=== PATIENT | female | born 2000 | race Caucasian/White ===

== ENCOUNTER 2022-08-15 08:17 | Inpatient (IN) | payer OTHER ==
[~2022-08-15 08:17] MED LIST: CLINDAMYCIN 600 MG PREMIX BAG IVPB ONE
[2022-08-15 08:23] VITALS: BMI 19.1
[2022-08-15] MEDS ORDERED: LACTATED RINGERS SOLUTION 1,000 ML/1,000 ML INFUS.BAG IV SCH (11:00)
[2022-08-15 11:35] LABS: INR 1.03 (0.83-1.09); PROTHROMBIN TIME (PATIENT) 11.9 SEC (9.7-13.0)
[2022-08-15 11:37] LABS: ACTIVATED PTT 19.8 SECONDS (25.2-36.5)
[2022-08-15] MEDS ORDERED: ACETAMINOPHEN 1000 MG/100 ML BAG IVPB PRN ×2 (11:57→15:12)
[2022-08-15 12:03] LABS: POTASSIUM 4.4 mmol/L (3.5-5.1)
[2022-08-15 12:05] LABS: CALCIUM 9.8 mg/dL (8.5-10.1)
[2022-08-15 12:06] LABS: ALBUMIN 4.4 g/dl (3.4-5.0)
[2022-08-15 12:09] LABS: CREATININE 0.6 mg/dL (0.55-1.3)
[2022-08-15 12:10] LABS: BASO % 0.2 % (0-2.0); EOS % 0.6 % (0-4.5); HEMATOCRIT 40.2 % (32.4-45.2); HEMOGLOBIN 13.9 GM/dL (10.7-15.3); LYMPH % 5.8 % (8-40); MCH 30.9 pg (25.7-33.7); MCHC 34.5 g/dl (32.0-36.0); MEAN CELL VOLUME 89.5 fl (80-96); MEAN PLT VOLUME 8.4 fl (7.5-11.1); MONO % 7.4 % (3.8-10.2); PLATELET COUNT 243 10^3/uL (134-434); RBC 4.49 M/mm3 (3.60-5.2); RDW 12.4 % (11.6-15.6); WHITE BLOOD COUNT 12.7 K/mm3 (4.0-10.0)
[2022-08-15 12:10] LABS: TOT PROT 8.3 g/dl (6.4-8.2)
[2022-08-15] MEDS ORDERED: MIDAZOLAM HCL 2 MG/2 ML SINGLE DOSE VIAL ONE ×2 (13:12→13:36)
[2022-08-15] MEDS ORDERED: PROPOFOL 20 ML ONE ×2 (13:12→13:41)
[2022-08-15] MEDS ORDERED: LIDOCAINE HCL 1%, 10 MG/ML (10ML VIAL) MDV ONE (13:15)
[2022-08-15] MEDS ORDERED: CLINDAMYCIN 600 MG PREMIX BAG IVPB ONE (13:39)
[2022-08-15] MEDS ORDERED: DEXAMETHASONE SOD PHOSPHATE 4 MG/1 ML VIAL ONE (13:39)
[2022-08-15] MEDS ORDERED: ceFAZolin SODIUM 1 GM VIAL ONE (13:39)
[2022-08-15] MEDS ORDERED: KETOROLAC TROMETHAMINE 30 MG/1 ML VIAL ONE (13:39)
[2022-08-15] MEDS ORDERED: ONDANSETRON 4 MG/2 ML VIAL ONE ×2 (13:39→15:38)
[2022-08-15] MEDS ORDERED: LIDOCAINE 1% P/F 10 MG/ML VIAL INF ONE ×2 (13:48)
[2022-08-15] MEDS ORDERED: BUPIVACAINE HCL/PF 0.5% (5MG/ML) 10 ML VIAL IJ ONE ×2 (13:48)
[2022-08-15] MEDS ORDERED: ceFAZolin SODIUM 1 GM VIAL IVPB ONE (13:50)
[2022-08-15] MEDS ORDERED: ONDANSETRON 4 MG/2 ML VIAL IVPUSH PRN ×2 (14:11→15:12)
[2022-08-15] MEDS ORDERED: ACETAMINOPHEN 1000 MG/100 ML BAG IVPB ONE ×2 (14:12→15:12)
[2022-08-15] MEDS ORDERED: LACTATED RINGERS SOLUTION 1,000 ML IV SCH (14:15)
[2022-08-15] MEDS ORDERED: VANCOMYCIN/WATER FOR INJ (PEG) 1,000 MG/200 ML BAG IVPB ONE ×2 (15:00→15:15)
[2022-08-15] MEDS ORDERED: AMPICILLIN NA/SULBACTAM NA 3 GM in SODIUM CHLORIDE 100 ML IVPB SCH ×2 (15:00→21:00)
[2022-08-15] MEDS ORDERED: ACETAMINOPHEN INJECTION 100 ML IVPB ONE (15:13)
[2022-08-15] MEDS: LACTATED RINGERS SOLUTION 1,000 ML IV SCH (16:51)
[2022-08-15] MEDS: AZTREONAM 1 GM in DEXTROSE 5%-WATER - 50 ML IVPB SCH (18:09)
[2022-08-16] MEDS: AZTREONAM 1 GM in DEXTROSE 5%-WATER - 50 ML IVPB SCH ×3 (01:10→18:55)
[2022-08-16] MEDS: VANCOMYCIN/WATER FOR INJ (PEG) 1,000 MG/200 ML BAG IVPB SCH ×2 (04:28→16:56)
[2022-08-16 08:44] LABS: BASO % 0.5 % (0-2.0); EOS % 0.1 % (0-4.5); HEMATOCRIT 39.7 % (32.4-45.2); HEMOGLOBIN 13.9 GM/dL (10.7-15.3); LYMPH % 4.6 % (8-40); MCH 31.5 pg (25.7-33.7); MEAN CELL VOLUME 89.9 fl (80-96); MEAN PLT VOLUME 8.5 fl (7.5-11.1); MONO % 4.3 % (3.8-10.2); NEUT % 90.5 % (42.8-82.8); PLATELET COUNT 248 10^3/uL (134-434); RBC 4.42 M/mm3 (3.60-5.2); RDW 12.7 % (11.6-15.6)
[2022-08-16 09:01] LABS: POTASSIUM 3.8 mmol/L (3.5-5.1)
[2022-08-16 09:03] LABS: BLOOD UREA NITROGEN 5.3 mg/dL (7-18)
[2022-08-16 09:05] LABS: ALBUMIN 3.7 g/dl (3.4-5.0); CALCIUM 9.1 mg/dL (8.5-10.1)
[2022-08-16 09:06] LABS: MAGNESIUM 1.8 mg/dL (1.8-2.4)
[2022-08-16 09:08] LABS: CREATININE 0.7 mg/dL (0.55-1.3); PHOSPHOROUS 2.2 mg/dL (2.5-4.9)
[2022-08-16 09:10] LABS: BILIRUBIN,TOTAL 0.5 mg/dL (0.2-1); TOT PROT 7.1 g/dl (6.4-8.2)
[2022-08-16] MEDS ORDERED: NAPH,MB-DB/K PH,MBDB POWDER PACKET PO ONE (11:56)
[2022-08-16] MEDS: diphenhydrAMINE HCL 25 MG CAPSULE (FP) PO PRN (15:33)
[2022-08-16] MEDS ORDERED: KETOROLAC TROMETHAMINE 15 MG/ML VIAL IVPUSH PRN (15:39)
[2022-08-16] MEDS: LACTATED RINGERS SOLUTION 1,000 ML IV SCH (18:17)
[2022-08-17] MEDS: AZTREONAM 1 GM in DEXTROSE 5%-WATER - 50 ML IVPB SCH ×2 (01:15→09:24)
[2022-08-17] MEDS: diphenhydrAMINE HCL 25 MG CAPSULE (FP) PO PRN ×2 (01:15→09:24)
[2022-08-17] MEDS: VANCOMYCIN/WATER FOR INJ (PEG) 1,000 MG/200 ML BAG IVPB SCH (04:25)
[2022-08-17 11:03] LABS: HEMATOCRIT 36.7 % (32.4-45.2); HEMOGLOBIN 12.6 GM/dL (10.7-15.3); MCH 31.1 pg (25.7-33.7); MCHC 34.3 g/dl (32.0-36.0); MEAN CELL VOLUME 90.9 fl (80-96); MEAN PLT VOLUME 8.4 fl (7.5-11.1); PLATELET COUNT 204 10^3/uL (134-434); RBC 4.04 M/mm3 (3.60-5.2); RDW 12.7 % (11.6-15.6); WHITE BLOOD COUNT 6.4 K/mm3 (4.0-10.0)
[2022-08-17 11:12] LABS: POTASSIUM 3.9 mmol/L (3.5-5.1)
[2022-08-17 11:16] LABS: BLOOD UREA NITROGEN 7.1 mg/dL (7-18); CALCIUM 8.3 mg/dL (8.5-10.1); MAGNESIUM 1.8 mg/dL (1.8-2.4)
[2022-08-17 11:19] LABS: CREATININE 0.6 mg/dL (0.55-1.3)
[2022-08-17 11:20] LABS: PHOSPHOROUS 2.6 mg/dL (2.5-4.9)
[2022-08-17 15:33] VITALS: RESP 18
[2022-08-17] MEDS: AMOX TR/POT CLAV 875MG/125MG TABLETS (FP) PO SCH (17:14)
[2022-08-18 05:55] VITALS: BP 117/58; PULSE 63; TEMP 98
[2022-08-18] MEDS: AMOX TR/POT CLAV 875MG/125MG TABLETS (FP) PO SCH (08:50)
[2022-08-18 10:16] LABS: HEMOGLOBIN 13.9 GM/dL (10.7-15.3); MCH 31.4 pg (25.7-33.7); MCHC 34.7 g/dl (32.0-36.0); MEAN CELL VOLUME 90.6 fl (80-96); MEAN PLT VOLUME 8.5 fl (7.5-11.1); PLATELET COUNT 234 10^3/uL (134-434); RBC 4.41 M/mm3 (3.60-5.2); RDW 12.7 % (11.6-15.6); WHITE BLOOD COUNT 5.4 K/mm3 (4.0-10.0)
[2022-08-18 10:37] LABS: CALCIUM 8.9 mg/dL (8.5-10.1)
[2022-08-18 10:38] LABS: BLOOD UREA NITROGEN 8.8 mg/dL (7-18); MAGNESIUM 1.9 mg/dL (1.8-2.4)
[2022-08-18 10:41] LABS: CREATININE 0.5 mg/dL (0.55-1.3); PHOSPHOROUS 3.3 mg/dL (2.5-4.9)
== END 2022-08-18 12:55 | disposition home or self-care (01) | DRG 364 ==
LOC: JER 08:17 → JERBED 11:28 → J6S 16:28
PROVIDERS: ADMIT Internal Medicine; ATTEND Internal Medicine
PROC: 0JQJ0ZZ Repair Right Hand Subcutaneous Tissue and Fascia, Open Approach (ICD-10-PCS; 2022-08-15)
PROC: 0J9J0ZZ Drainage of Right Hand Subcutaneous Tissue and Fascia, Open Approach (ICD-10-PCS; principal; 2022-08-15 12:00)
DX: L03.011 Cellulitis of right finger (principal); L08.9 Local infection of the skin and subcutaneous tissue, unspecified; M79.601 Pain in right arm; M79.646 Pain in unspecified finger(s); R20.0 Anesthesia of skin; R60.9 Edema, unspecified
CPT/HCPCS: 36415; 71045-TC-FY; 80048; 80053; 83735; 84100; 84703; 85025; 85027; 85610; 85730; 86850; 86900; 86901; 87040; 87070; 87186; 87205; 93005; 93010; 94760; 99284-25; C9803-CS; G0480; U0003; U0005